=== PATIENT | male | born 1980 | race Caucasian/White ===

== ENCOUNTER 2017-10-12 16:46 | Emergency (ER) | payer OTHER ==
[2017-10-12 17:04] VITALS: BP 137/87
--- NOTE | 2017-10-12 17:25 | ER Document Report ---
ED Medical Screen (RME) - General Chief Complaint: Suicidal Ideation Stated Complaint: PYSCH EVALUATION Time Seen by Provider: 10/12/17 17:04 TRAVEL OUTSIDE OF THE U.S. IN LAST 30 DAYS: No - HPI Notes: 10/12/17 17:23 37-year-old male who retired from the [employer] 2 days ago after serving since age 16. Patient states that he took a picture of a new rifle he got and texted it to his ex-girlfriend. He states she called the water and fire technician because she was concerned for his safety and the water and fire technician picked him up and brought in here for suicidal ideation. Patient states that he is not suicidal. Patient does state that he has been drinking at least 18 beers daily for the last few weeks. He states it is a big change to now be retired from the and he has a lot of emotions regarding that. He states that he was in AA and sober July 2015 to July 2016 when he found out his was having an affair on him and began drinking again. He has since been . He states he does have depression and he takes clonidine and Effexor for this. He denies suicide attempts in the past. 10/12/17 17:24 I have greeted and performed a rapid initial assessment of this patient. A comprehensive ED assessment and evaluation of the patient, analysis of test results and completion of the medical decision making process will be conducted by additional ED providers. PHYSICAL EXAMINATION: GENERAL: Well-appearing, well-nourished and in no acute distress. HEAD: Atraumatic, normocephalic. EYES: Pupils equal round extraocular movements intact, conjunctiva are normal. ENT: Nares patent NECK: Normal range of motion LUNGS: No respiratory distress CARDI: RRR Musculoskeletal: Normal range of motion NEUROLOGICAL: Normal speech, normal gait. PSYCH: Normal mood, normal affect. Good eye contact. SKIN: Warm, Dry, normal turgor, no rashes or lesions noted. - Related Data Allergies/Adverse Reactions: No Known Allergies Allergy (Verified 10/12/17 16:47) Physical Exam - Vital signs Vitals: Temp Pulse Resp BP Pulse Ox 99.2 F 124 H 20 137/87 H 96 10/12/17 17:02 10/12/17 17:02 10/12/17 17:02 10/12/17 17:02 10/12/17 17:02 Course - Vital Signs Vital signs: Temp Pulse Resp BP Pulse Ox 99.2 F 124 H 20 137/87 H 96 10/12/17 17:02 10/12/17 17:02 10/12/17 17:02 10/12/17 17:02 10/12/17 17:02
[2017-10-12 18:09] LABS: ABSOLUTE BASOPHILS # (AUTO) 0.1 10^3/uL (0.0-0.2); ABSOLUTE LYMPHOCYTES (AUTO) 2.7 10^3/uL (0.5-4.7); ABSOLUTE MONOCYTES (AUTO) 0.6 10^3/uL (0.1-1.4); ABSOLUTE NEUT (AUTO) 3.2 10^3/uL (1.7-8.2); BASOPHILS % (AUTO) 1.3 % (0-2); HEMATOCRIT 43.2 % (37.9-51.0); HEMOGLOBIN 15.4 g/dL (13.5-17.0); LYMPHOCYTES % (AUTO) 40.7 % (13-45); MEAN CORPUSCULAR HGB CONC 35.6 g/dL (32.0-36.0); MEAN CORPUSCULAR VOLUME 87 fl (80-97); MONOCYTES % (AUTO) 9.4 % (3-13); PLATELET COUNT 420 10^3/uL (150-450); RED BLOOD COUNT 4.96 10^6/uL (4.35-5.55); SEGMENTED NEUTROPHILS % (AUTO) 48.6 % (42-78); TOTAL CELLS COUNTED % (AUTO) 100 %; WHITE BLOOD COUNT 6.7 10^3/uL (4.0-10.5)
[2017-10-12 18:19] LABS: APPEARANCE,URINE CLEAR; BILIRUBIN,URINE NEGATIVE (NEGATIVE); COLOR,URINE STRAW; GLUCOSE, URINE NEGATIVE (NEGATIVE); KETONES,URINE NEGATIVE (NEGATIVE); LEUKOCYTE ESTERASE,URINE NEGATIVE (NEGATIVE); NITRITE,URINE NEGATIVE (NEGATIVE); PROTEIN,URINE NEGATIVE (NEGATIVE); URINE SPECIFIC GRAVITY 1.006; UROBILINOGEN,URINE NEGATIVE mg/dL (<2.0)
[2017-10-12 18:28] LABS: ALANINE AMINOTRANSFERASE 67 U/L (21-72); ALBUMIN 4.7 g/dL (3.5-5.0); ALCOHOL 208 mg/dL (NONE DETECTED); ALKALINE PHOSPHATASE 93 U/L (38-126); ANION GAP 16 (5-19); ASPARTATE AMINO TRANSFERASE 67 U/L (17-59); BILIRUBIN,DIRECT 0.5 mg/dL (0.0-0.4); BILIRUBIN,TOTAL 0.5 mg/dL (0.2-1.3); BLOOD UREA NITROGEN 10 mg/dL (7-20); CALCIUM 9.9 mg/dL (8.4-10.2); CARBON DIOXIDE 28 mmol/L (22-30); CHLORIDE 100 mmol/L (98-107); GLUCOSE 109 mg/dL (75-110); POTASSIUM 3.9 mmol/L (3.6-5.0); SODIUM 144.2 mmol/L (137-145); TOTAL PROTEIN 7.6 g/dL (6.3-8.2)
[2017-10-12 18:29] LABS: ACETAMINOPHEN < 10 ug/mL (10-30); SALICYLATE < 1.0 mg/dL (2.0-20.0)
[2017-10-12 18:37] LABS: URINE AMPHETAMINES SCREEN NEGATIVE; URINE BARBITURATES SCREEN NEGATIVE; URINE BENZODIAZEPINES SCREEN NEGATIVE; URINE COCAINE SCREEN NEGATIVE; URINE MARIJUANA (THC) SCREEN NEGATIVE; URINE METHADONE SCREEN NEGATIVE; URINE PHENCYCLIDINE SCREEN NEGATIVE
--- NOTE | 2017-10-12 19:03 | ER Document Report ---
ED General - General Chief Complaint: Suicidal Ideation Stated Complaint: PYSCH EVALUATION Time Seen by Provider: 10/12/17 17:04 Notes: Patient is a 37-year-old male with a history of depression, PTSD and anxiety who presents with concerns of a former significant other that he was suicidal. The patient himself adamantly denies suicidality stating that this is all a misunderstanding. He apparently texted a picture of a new shotgun to his ex- girlfriend whom he reports is a gun enthusiast. He also texted a picture of a hole in a piece of drywall which he reports was where he accidentally discharged the gun in the house. He did not text any indication that he was acutely suicidal or planning to harm himself. The patient does admit to drinking alcohol today but notes that he has an alcohol dependency and does not currently feel acutely intoxicated. He denies any plan or intention to harm himself. No intention to harm others. He has never attempted to harm himself or had a mental health hospitalization per his report. He denies any acute physical symptoms or complaints. TRAVEL OUTSIDE OF THE [place] IN LAST 30 DAYS: No - Related Data Allergies/Adverse Reactions: No Known Allergies Allergy (Verified 10/12/17 16:47) Past Medical History - General Information source: Patient - Social History Smoking Status: Never Smoker Chew tobacco use (# tins/day): Yes Frequency of alcohol use: alcoholic Drug Abuse: None Lives with: Alone Family History: Reviewed & Not Pertinent Patient has suicidal ideation: No Patient has homicidal ideation: No Renal/ Medical History: Denies: Hx Peritoneal Dialysis Psychiatric Medical History: Reports: Hx Depression Review of Systems - Review of Systems Notes: Constitutional: Negative for fever. HENT: Negative for sore throat. Eyes: Negative for visual changes. Cardiovascular: Negative for chest pain. Respiratory: Negative for shortness of breath. Gastrointestinal: Negative for abdominal pain, vomiting or diarrhea. Genitourinary: Negative for dysuria. Musculoskeletal: Negative for back pain. Skin: Negative for rash. Neurological: Negative for headaches, weakness or numbness. 10 point ROS negative except as marked above and in HPI. Physical Exam - Vital signs Vitals: Temp Pulse Resp BP Pulse Ox 99.2 F 124 H 20 137/87 H 96 10/12/17 17:02 10/12/17 17:02 10/12/17 17:02 10/12/17 17:02 10/12/17 17:02 Interpretation: Tachycardic Notes: PHYSICAL EXAMINATION: GENERAL: Well-appearing, well-nourished and in no acute distress. HEAD: Atraumatic, normocephalic. EYES: Pupils equal round and reactive to light, extraocular movements intact, sclera anicteric, conjunctiva are normal. ENT: nares patent, oropharynx clear without exudates. Moist mucous membranes. NECK: Normal range of motion, supple without lymphadenopathy LUNGS: Breath sounds clear to auscultation bilaterally and equal. No wheezes rales or rhonchi. HEART: Regular rate and rhythm without murmurs ABDOMEN: Soft, nontender, normoactive bowel sounds. No guarding, no rebound. No masses appreciated. EXTREMITIES: Normal range of motion, no pitting or edema. No cyanosis. NEUROLOGICAL: No focal neurological deficits. Moves all extremities spontaneously and on command. PSYCH: Normal mood, normal affect. SKIN: Warm, Dry, normal turgor, no rashes or lesions noted. Course - Re-evaluation Re-evalutation: 10/12/17 19:00 Patient presents after texting a picture of a new shotgun he purchase to his girlfriend as well as a picture of an accidental discharge into the wall per his report. Patient presents very pleasant on contact, makes excellent eye contact, and states very clearly that he is not suicidal, has never been suicidal, has never attempted to harm himself, and has no plans to do so. He has a organized linear and coherent thought process. Although his alcohol level is elevated he does not appear clinically intoxicated. I do believe he has capacity and based on the history he is providing I do not see indications for involuntary commitment. Patient did allow me to review his cell phone and his conversation between him and his ex-girlfriend whom apparently contacted the mechanical inspector. Per the patient's phone, the only text message that was sent is a picture of a shotgun laying on a wall as well as a small hole in a piece of drywall. Patient does not add any additional text to suggest any kind of suicidal thoughts or threat. The following texts indicate patient being very angry with his former significant other for contacting the mechanical inspector. The only text message the significant other texted back to him is that she is "praying for him and I hope you get to help you need". Patient does admit to a long- standing history of depression but adamantly denies any prior suicide attempts or any current suicidal ideation. Screening labs obtained in triage are overall unremarkable. The patient has not presented me with any information, behaviors or mannerisms that would suggest high risk for suicide completion. He has contracted for safety and is clear for discharge home. - Vital Signs Vital signs: Temp Pulse Resp BP Pulse Ox 99.2 F 124 H 20 137/87 H 96 10/12/17 17:02 10/12/17 17:02 10/12/17 17:02 10/12/17 17:02 10/12/17 17:02 - Laboratory Result Diagrams: 10/12/17 17:54 10/12/17 17:54 Laboratory results interpreted by me: 10/12/17 10/12/17 17:50 17:54 Direct Bilirubin 0.5 H AST 67 H Urine Blood SMALL H Salicylates < 1.0 L Acetaminophen < 10 L - EKG Interpretation by Me Additional EKG results interpreted by me: 10/13/17 03:27 Sinus tachycardia. Rate 114. No ST elevations or depressions. Discharge - Discharge Clinical Impression: Well adult health check Depression Qualifiers: Depression Type: unspecified Qualified Code(s): F32.9 - Major depressive disorder, single episode, unspecified Condition: Good Disposition: HOME, SELF-CARE Additional Instructions: Please return if you have thoughts of wanting to hurt yourself, hurt others, or have any other symptoms that are concerning to you.
--- NOTE | 2017-10-13 08:27 | EKG REPORT ---
SEVERITY:- OTHERWISE NORMAL ECG - SINUS TACHYCARDIA : Confirmed by: Marcial Quiles MD 13-Oct-2017 08:27:01
== END 2017-10-12 19:06 | disposition home or self-care (01) ==
LOC: ER 16:46
DX: F32.9 Major depressive disorder, single episode, unspecified (principal); F10.20 Alcohol dependence, uncomplicated; R00.0 Tachycardia, unspecified
CPT/HCPCS: 36415; 80053; 80307; 81001; 85025; 93005; 93010; 99285

== ENCOUNTER 2018-03-16 18:36 | Emergency (ER) | payer OTHER ==
--- NOTE | 2018-03-16 19:37 | ER Document Report ---
ED Medical Screen (RME) - General Chief Complaint: Abdominal Pain Stated Complaint: ABDOMINAL PAIN Time Seen by Provider: 03/16/18 19:35 Notes: The patient is a 37-year-old male, past medical history daily alcohol dependence , depression, presents with 1 week of abdominal pain, now worse in the right lower quadrant. Denies nausea, vomiting, diarrhea, constipation or fevers. PE: (Limited exam due to RME chair) RLQ tenderness, normal bowel sounds I have greeted and performed a rapid initial assessment of this patient. A comprehensive ED assessment and evaluation of the patient, analysis of test results and completion of the medical decision making process will be conducted by additional ED providers. TRAVEL OUTSIDE OF THE [place] IN LAST 30 DAYS: No - Related Data Allergies/Adverse Reactions: No Known Allergies Allergy (Verified 03/16/18 18:45) Past Medical History Renal/ Medical History: Denies: Hx Peritoneal Dialysis Psychiatric Medical History: Reports: Hx Depression Physical Exam - Vital signs Vitals: Temp Pulse Resp BP Pulse Ox 98.7 F 102 H 19 126/98 H 96 03/16/18 18:50 03/16/18 18:50 03/16/18 18:50 03/16/18 18:50 03/16/18 18:50 Course - Vital Signs Vital signs: Temp Pulse Resp BP Pulse Ox 98.7 F 102 H 19 126/98 H 96 03/16/18 18:50 03/16/18 18:50 03/16/18 18:50 03/16/18 18:50 03/16/18 18:50
[2018-03-16 20:28] LABS: ABSOLUTE BASOPHILS # (AUTO) 0.1 10^3/uL (0.0-0.2); ABSOLUTE LYMPHOCYTES (AUTO) 2.4 10^3/uL (0.5-4.7); ABSOLUTE MONOCYTES (AUTO) 0.4 10^3/uL (0.1-1.4); ABSOLUTE NEUT (AUTO) 4.7 10^3/uL (1.7-8.2); BASOPHILS % (AUTO) 0.7 % (0-2); HEMATOCRIT 40.3 % (37.9-51.0); HEMOGLOBIN 14.6 g/dL (13.5-17.0); LYMPHOCYTES % (AUTO) 32.1 % (13-45); MEAN CORPUSCULAR HEMOGLOBIN 31.5 pg (27.0-33.4); MEAN CORPUSCULAR HGB CONC 36.2 g/dL (32.0-36.0); MEAN CORPUSCULAR VOLUME 87 fl (80-97); MONOCYTES % (AUTO) 5.1 % (3-13); PLATELET COUNT 257 10^3/uL (150-450); RED BLOOD COUNT 4.63 10^6/uL (4.35-5.55); RED CELL DISTRIBUTION WIDTH 12.8 % (11.5-14.0); SEGMENTED NEUTROPHILS % (AUTO) 62.1 % (42-78); TOTAL CELLS COUNTED % (AUTO) 100 %; WHITE BLOOD COUNT 7.5 10^3/uL (4.0-10.5)
[2018-03-16 20:44] LABS: ALANINE AMINOTRANSFERASE 86 U/L (21-72); ALBUMIN 4.4 g/dL (3.5-5.0); ALKALINE PHOSPHATASE 84 U/L (38-126); ASPARTATE AMINO TRANSFERASE 163 U/L (17-59); BILIRUBIN,DIRECT 0.5 mg/dL (0.0-0.4); BILIRUBIN,TOTAL 1.8 mg/dL (0.2-1.3); BLOOD UREA NITROGEN 14 mg/dL (7-20); CALCIUM 8.7 mg/dL (8.4-10.2); CARBON DIOXIDE 25 mmol/L (22-30); CHLORIDE 88 mmol/L (98-107); GLUCOSE 95 mg/dL (75-110); LIPASE 161.8 U/L (23-300); POTASSIUM 3.7 mmol/L (3.6-5.0); SODIUM 132.9 mmol/L (137-145); TOTAL PROTEIN 7.2 g/dL (6.3-8.2)
--- NOTE | 2018-03-16 20:53 | ER Document Report ---
ED General - General Chief Complaint: Abdominal Pain Stated Complaint: ABDOMINAL PAIN Time Seen by Provider: 03/16/18 19:35 Mode of Arrival: Medic Information source: Patient, Emergency Med Personnel Notes: 37-year-old male ex- with PTSD, chronic pain, depression presents via EMS after found wandering around the street intoxicated. Patient also complaining of abdominal pain that started 1 week prior to arrival. It is located in the epigastric region described as a intermittent stabbing pain with associated nausea and vomiting. Patient states he had 2 episodes of vomiting which were nonbilious or bloody. Patient also complaining of diarrhea for 3 days which he describes as normal in color. Patient admits to drinking 14 beers today. Patient states that he is recently homeless. He was living with his brother but was kicked out approximately 1 week ago. He is requesting psychiatric evaluation. TRAVEL OUTSIDE OF THE U[place] IN LAST 30 DAYS: No - HPI Onset: Last week Onset/Duration: Gradual Quality of pain: Stabbing Severity: Mild - Related Data Allergies/Adverse Reactions: No Known Allergies Allergy (Verified 03/16/18 18:45) Past Medical History - General Information source: Patient, [facility] Records - Social History Smoking Status: Current Every Day Smoker Chew tobacco use (# tins/day): Yes Frequency of alcohol use: heavy daily Drug Abuse: None Lives with: Homeless Family History: Reviewed & Not Pertinent Patient has suicidal ideation: No Patient has homicidal ideation: No Renal/ Medical History: Denies: Hx Peritoneal Dialysis Musculoskeltal Medical History: Reports Other - Chronic neck and back pain Psychiatric Medical History: Reports: Hx Depression, Hx Post Traumatic Stress Disorder Physical Exam - Vital signs Vitals: Temp Pulse Resp BP Pulse Ox 98.7 F 102 H 19 126/98 H 96 03/16/18 18:50 03/16/18 18:50 03/16/18 18:50 03/16/18 18:50 03/16/18 18:50 Course - Re-evaluation Re-evalutation: 03/16/18 22:27 Laboratory 03/16/18 03/16/18 03/16/18 20:20 20:20 20:20 WBC 7.5 RBC 4.63 Hgb 14.6 Hct 40.3 MCV 87 MCH 31.5 MCHC 36.2 H RDW 12.8 Plt Count 257 Seg Neutrophils % 62.1 Lymphocytes % 32.1 Monocytes % 5.1 Eosinophils % 0.0 Basophils % 0.7 Absolute Neutrophils 4.7 Absolute Lymphocytes 2.4 Absolute Monocytes 0.4 Absolute Eosinophils 0.0 Absolute Basophils 0.1 Sodium 132.9 L Potassium 3.7 Chloride 88 L Carbon Dioxide 25 Anion Gap 20 H BUN 14 Creatinine 1.08 Est GFR ( Amer) > 60 Est GFR (Non-Af Amer) > 60 Glucose 95 Calcium 8.7 Total Bilirubin 1.8 H Direct Bilirubin 0.5 H Neonat Total Bilirubin Not Reportable Neonat Direct Bilirubin Not Reportable Neonat Indirect Bili Not Reportable AST 163 H ALT 86 H Alkaline Phosphatase 84 Total Protein 7.2 Albumin 4.4 Lipase 161.8 Salicylates < 1.0 L Acetaminophen < 10 L Serum Alcohol 350 H* 03/16/18 22:37 37-year-old male ex with PTSD, chronic pain, depression presents via EMS after found wandering around the street intoxicated. Patient also complaining of abdominal pain that started 1 week prior to arrival. It is located in the epigastric region described as a intermittent stabbing pain with associated nausea and vomiting. Patient states he had 2 episodes of vomiting which were nonbilious or bloody. Patient also complaining of diarrhea for 3 days which he describes as normal in color. Patient states that he is recently homeless. He was living with his brother but was kicked out approximately 1 week ago. He is requesting psychiatric evaluation. Upon arrival patient is mildly tachycardic but afebrile and normotensive. He does not appear toxic or dehydrated but he is obviously intoxicated. If thickened laboratory findings include an alcohol of 350. Otherwise patient has a normal physical exam. Patient is requesting psychiatric evaluation and will stay voluntarily. If at any point the patient would like to go he is allowed to do so. Patient cleared for psychiatric evaluation. 03/16/18 22:37 03/16/18 22:43 - Vital Signs Vital signs: Temp Pulse Resp BP Pulse Ox 98.7 F 102 H 19 126/98 H 96 03/16/18 18:50 03/16/18 18:50 03/16/18 18:50 03/16/18 18:50 03/16/18 18:50 - Laboratory Result Diagrams: 03/16/18 20:20 07/08/18 20:20 Laboratory results interpreted by me: 03/16/18 03/16/18 03/16/18 20:20 20:20 20:20 MCHC 36.2 H Sodium 132.9 L Chloride 88 L Anion Gap 20 H Total Bilirubin 1.8 H Direct Bilirubin 0.5 H AST 163 H ALT 86 H Salicylates < 1.0 L Acetaminophen < 10 L Serum Alcohol 350 H* Discharge - Discharge Clinical Impression: Epigastric abdominal pain Alcohol intoxication Qualifiers: Complication of substance-induced condition: uncomplicated Qualified Code(s): F10.920 - Alcohol use, unspecified with intoxication, uncomplicated Depression Qualifiers: Depression Type: unspecified Qualified Code(s): F32.9 - Major depressive disorder, single episode, unspecified Condition: Good
[2018-03-16] MEDS ORDERED: PANTOPRAZOLE SODIUM 40 MG VIAL IV ONE (20:54)
[2018-03-16 20:59] LABS: ANION GAP 20 (5-19)
[2018-03-16 22:10] LABS: ACETAMINOPHEN < 10 ug/mL (10-30); SALICYLATE < 1.0 mg/dL (2.0-20.0)
[2018-03-16 22:14] LABS: ALCOHOL 350 mg/dL (NONE DETECTED)
[2018-03-17 06:49] LABS: APPEARANCE,URINE CLEAR; BILIRUBIN,URINE NEGATIVE (NEGATIVE); COLOR,URINE YELLOW; GLUCOSE, URINE NEGATIVE (NEGATIVE); KETONES,URINE TRACE mg/dL (NEGATIVE); LEUKOCYTE ESTERASE,URINE NEGATIVE (NEGATIVE); NITRITE,URINE NEGATIVE (NEGATIVE); PROTEIN,URINE NEGATIVE (NEGATIVE); URINE SPECIFIC GRAVITY 1.006; UROBILINOGEN,URINE NEGATIVE mg/dL (<2.0)
[2018-03-17 07:52] LABS: URINE AMPHETAMINES SCREEN NEGATIVE; URINE BARBITURATES SCREEN NEGATIVE; URINE METHADONE SCREEN NEGATIVE
[2018-03-17 08:28] LABS: URINE BENZODIAZEPINES SCREEN NEGATIVE; URINE COCAINE SCREEN NEGATIVE; URINE MARIJUANA (THC) SCREEN NEGATIVE
[2018-03-17 08:56] LABS: URINE PHENCYCLIDINE SCREEN NEGATIVE
--- NOTE | 2018-03-17 09:06 | ER Document Report ---
Doctor's Note Notes: 03/17/18 09:05 I have evaluated this patient this am and has no c/o at this time. Feels all of their needs are being met and physical exam is normal. Awaiting dispositon per mental health. 03/17/18 09:29 Mental Health is recommending patient be discharged and follow up with the [place] [facility]. He was offered [place] detox, but he declines detox at this time. [facility] [place] [facility] He already has depression medications and gabapentin to help prevent alcohol withdrawal [facility].
[2018-03-17 09:53] VITALS: BP 148/92
--- NOTE | 2018-03-18 12:31 | PSYCHOLOGICAL NOTE ---
Psych Note - Psych Note Psych Note: Reason for consult: substance abuse, homelessness 37-year-old male ex- with PTSD, chronic pain, depression presents via EMS after found wandering around the street intoxicated. Patient also complaining of abdominal pain that started 1 week prior to arrival. Patient admits to drinking 14 beers today. Patient states that he is recently homeless. He was living with his brother but was kicked out approximately 1 week ago. He is requesting psychiatric evaluation. Patient disclosed he arrived to [facility] via EMS because of "too much alcohol." He states that he normally goes to however the month of January and February have been rough and he has not been going. He reports that he started binge drinking since because it is the anniversary of his mother's and he has lost many [employer]. 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 Patient states he has no interest in substance abuse treatment however would like information and resources for homelessness. Patient denies suicidal and homicidal ideations disclose he has a diagnosis of PTSD and substance abuse. Patient states he plans to move to [facility] once he is back paid from [place] because he wants to be closer to where his children live with her mother. Patient is alert and orientated to person, place, time and circumstance. Mood is euthymic with congruent affect. Patient denies suicidal and homicidal ideation. Delusions are absent and behaviors congruent with an intact reality based presentation i.e. organized and linear thought process. Eye contact was well-maintained. Conversational speech was within normal rate, tone and prosody. Intellectual abilities appear to be within average range. Attention and concentration were good. Insight, judgment, impulse control appear to be poor due to substance abuse. No medication recommendations at this time 303.90 (F10.20) alcohol use disorder; severe Impression\\plan: Patient is cleared from acute psychiatric services. Patient discloses that he was intoxicated last night and is currently homeless because he was kicked out of his brother's home about a week ago. Patient states he is not interested in substance abuse treatment because he already goes to . He does request resource information on homelessness, patient was provided this information. Patient was highly encouraged to follow through with substance abuse treatment. Patient demonstrated forward thinking in wanting to move to [facility] so he can be closer to his children. Dr. Mobley was consulted and the care and management of this patient; attending physician is in agreement with recommendations and disposition.
== END 2018-03-17 09:54 | disposition home or self-care (01) ==
LOC: ER 18:36
DX: R10.13 Epigastric pain (principal); F10.920 Alcohol use, unspecified with intoxication, uncomplicated; F32.9 Major depressive disorder, single episode, unspecified; R11.2 Nausea with vomiting, unspecified; F17.200 Nicotine dependence, unspecified, uncomplicated; F43.10 Post-traumatic stress disorder, unspecified; G89.29 Other chronic pain; Z59.0 Homelessness
CPT/HCPCS: 99284; 96374; 36415; 80307 ×4; 83690; 85025; 80053; 81001; S0164

== ENCOUNTER 2018-03-18 15:02 | Emergency (ER) | payer OTHER ==
--- NOTE | 2018-03-18 16:56 | ER Document Report ---
ED Substance Abuse / Acc. OD - General Chief Complaint: ETOH Abuse Stated Complaint: ETOH Time Seen by Provider: 03/18/18 15:45 Notes: Patient is a 37-year-old male, chronic alcoholic, presents requesting detox. He was seen in the ER yesterday and offered detox at that time, but he declined. He is a vet. Patient recently homeless after being kicked out of his brother's house. Denies seizures, hallucinations, chest pain, shortness of breath, nausea, vomiting or rash. TRAVEL OUTSIDE OF THE [place] IN LAST 30 DAYS: No - Related Data Allergies/Adverse Reactions: No Known Allergies Allergy (Verified 03/18/18 15:03) Past Medical History - General Information source: Patient - Social History Smoking Status: Current Every Day Smoker Chew tobacco use (# tins/day): No Frequency of alcohol use: Heavy Drug Abuse: None Family History: Reviewed & Not Pertinent Patient has suicidal ideation: No Patient has homicidal ideation: No Renal/ Medical History: Denies: Hx Peritoneal Dialysis Psychiatric Medical History: Reports: Hx Depression, Hx Post Traumatic Stress Disorder Review of Systems - Review of Systems Notes: REVIEW OF SYSTEMS: CONSTITUTIONAL: -fevers, -chills EENT: -eye pain, -difficulty swallowing, -nasal congestion CARDIOVASCULAR: -chest pain, -syncope. RESPIRATORY: -cough, -SOB GASTROINTESTINAL: -abdominal pain, -nausea, -vomiting, -diarrhea GENITOURINARY: -dysuria, -hematuria MUSCULOSKELETAL: -back pain, -neck pain SKIN: -rash or skin lesions. HEMATOLOGIC: -easy bruising or bleeding. LYMPHATIC: -swollen, enlarged glands. NEUROLOGICAL: -altered mental status or loss of consciousness, -headache, - neurologic symptoms PSYCHIATRIC: -anxiety, -depression. ALL OTHER SYSTEMS REVIEWED AND NEGATIVE. Physical Exam - Vital signs Vitals: Temp Pulse Resp BP Pulse Ox 98.8 F 106 H 16 134/92 H 96 03/18/18 15:10 03/18/18 15:10 03/18/18 15:10 03/18/18 15:10 03/18/18 15:10 - Notes Notes: PHYSICAL EXAMINATION: GENERAL: Well-appearing, well-nourished and in no acute distress. Smells of ETOH. HEAD: Atraumatic, normocephalic. EYES: Erythematous conjunctivia, pupils equal round and reactive to light, extraocular movements intact, sclera anicteric. ENT: nares patent, oropharynx clear without exudates. Moist mucous membranes. NECK: Normal range of motion, supple without lymphadenopathy LUNGS: Breath sounds clear to auscultation bilaterally and equal. No wheezes rales or rhonchi. HEART: Mild tachycardia. ABDOMEN: Soft, nontender, normoactive bowel sounds. No guarding, no rebound. No masses appreciated. EXTREMITIES: Normal range of motion, no pitting or edema. No cyanosis. No tremors. NEUROLOGICAL: Cranial nerves grossly intact. Normal speech, normal gait. Normal sensory and motor exams. PSYCH: Normal mood, normal affect. SKIN: Warm, Dry, normal turgor, no rashes or lesions noted. Course - Re-evaluation Re-evalutation: He is requesting alcohol detox. Sergio Hatfield, casework specialist, has helped set up inpatient detox and he will be transferred. Blood work reviewed from yesterday was normal. He has no signs of severe alcohol withdrawal at this time and can ambulate with a steady gait, even though he is intoxicated. 03/18/18 20:10 Transport to Detox arrived. Pt slightly agitated and tachycardic. No severe symptoms of alcohol withdraw at this time. He is going to Inpatient Alcohol Detox and further withdrawal symptoms can be managed there. - Vital Signs Vital signs: Temp Pulse Resp BP Pulse Ox 98.8 F 106 H 16 134/92 H 96 03/18/18 15:10 03/18/18 15:10 03/18/18 15:10 03/18/18 15:10 03/18/18 15:10 Discharge - Discharge Clinical Impression: Alcohol intoxication Qualifiers: Complication of substance-induced condition: uncomplicated Qualified Code(s): F10.920 - Alcohol use, unspecified with intoxication, uncomplicated Condition: Stable Disposition: HOME, SELF-CARE Additional Instructions: You will be transferred to detox.
[2018-03-18 21:02] VITALS: BP 93/48
== END 2018-03-18 20:15 | disposition home or self-care (01) ==
LOC: ER 15:02
DX: F10.220 Alcohol dependence with intoxication, uncomplicated (principal); F17.200 Nicotine dependence, unspecified, uncomplicated; R00.0 Tachycardia, unspecified; Z59.0 Homelessness
CPT/HCPCS: 99284